=== PATIENT | female | born 1935 | race Caucasian/White ===

== ENCOUNTER 2020-09-08 18:49 | Inpatient (IN) ==
[2020-09-08] MEDS ORDERED: Ondansetron 4 MG/2 ML VIAL IVP ONE (20:00)
[2020-09-08] MEDS ORDERED: Morphine Sulfate 2 MG/ML SYRINGE IVP ONE ×2 (20:00→22:25)
[2020-09-08 20:16] LABS: Basophils % 0.3 %; Eosinophils # 0.1 K/mcL (0.0-0.6); Eosinophils % 1.1 %; Hematocrit 37.8 % (35.3-44.9); Hemoglobin 12.6 g/dL (11.5-15.4); Immature Granulocytes % 0.3 % (0-4); Lymphocytes # 1.3 K/mcL (0.6-4.6); Lymphocytes % 13.5 %; Mean Corpuscular HGB Conc 33.3 g/dL (31.6-35.5); Mean Corpuscular Hemoglobin 28.8 pg (28.0-33.3); Mean Corpuscular Volume 86.3 fL (83.0-100.0); Monocytes # 0.8 K/mcL (0.0-1.3); Monocytes % 8.6 %; Neutrophils # 7.4 K/mcL (1.6-8.9); Platelet Count 268 K/mcL (140-400); Red Blood Count 4.38 M/mcL (3.82-4.97); Red Cell Distribution Width 12.4 % (11.5-14.5); Segmented Neutrophils % 76.2 %; White Blood Count 9.7 K/mcL (4.3-11.1)
[2020-09-08 20:25] LABS: Alanine Aminotransferase 7 Units/L (7-52); Albumin 3.9 g/dL (3.5-5.7); Albumin/Globulin Ratio 1.3 (1.1-2.2); Alkaline Phosphatase 88 Units/L (34-104); Aspartate Amino Transferase 15 Units/L (13-39); BUN/Creatinine Ratio 22 (6-26); Bilirubin,Total 0.7 mg/dL (0.3-1.0); Blood Urea Nitrogen 20 mg/dL (8-23); C-Reactive Protein 33 mg/L (Less than 10); Calcium 9.3 mg/dL (8.6-10.3); Carbon Dioxide 31 mEq/L (23-29); Chloride 93 mEq/L (98-107); Globulin 2.9 g/dL (2.4-3.5); Glucose 153 mg/dL (70-105); Osmolality,Calculated 280 (280-300); Potassium 3.6 mEq/L (3.5-5.1); Sodium 132 mEq/L (136-145); Total Protein 6.8 g/dL (6.4-8.9); eGFR For African Americans > 60 (> 60); eGFR For Non-African Americans 59 (> 60)
[2020-09-08] MEDS ORDERED: Piperacillin/Tazobactam 3.375 GM in Water for inj. (sterile) 20 ML IVP ONE (21:56)
[2020-09-08] MEDS ORDERED: Ondansetron 4 MG/2 ML VIAL IVP PRN (22:39)
[2020-09-08] MEDS ORDERED: Naloxone 0.4 MG/ML INJ IVP PRN (22:39)
[2020-09-08] MEDS ORDERED: Acetaminophen 325 MG TABLET PO PRN (22:39)
[2020-09-09 02:15] LABS: Basophils % 0.4 %; Eosinophils # 0.2 K/mcL (0.0-0.6); Eosinophils % 1.5 %; Hematocrit 40.7 % (35.3-44.9); Hemoglobin 13.4 g/dL (11.5-15.4); Immature Granulocytes % 0.3 % (0-4); Lymphocytes # 1.7 K/mcL (0.6-4.6); Lymphocytes % 15.8 %; Mean Corpuscular HGB Conc 32.9 g/dL (31.6-35.5); Mean Corpuscular Hemoglobin 28.6 pg (28.0-33.3); Mean Platelet Volume 10.2 fL (9.4-12.4); Monocytes % 9.1 %; Neutrophils # 7.9 K/mcL (1.6-8.9); Platelet Count 284 K/mcL (140-400); Red Blood Count 4.68 M/mcL (3.82-4.97); Red Cell Distribution Width 12.4 % (11.5-14.5); Segmented Neutrophils % 72.9 %; White Blood Count 10.8 K/mcL (4.3-11.1)
[2020-09-09 02:28] LABS: BUN/Creatinine Ratio 19 (6-26); Blood Urea Nitrogen 18 mg/dL (8-23); Carbon Dioxide 29 mEq/L (23-29); Chloride 96 mEq/L (98-107); Glucose 227 mg/dL (70-105); Osmolality,Calculated 287 (280-300); Potassium 3.6 mEq/L (3.5-5.1); Sodium 134 mEq/L (136-145); eGFR For African Americans > 60 (> 60); eGFR For Non-African Americans 56 (> 60)
[2020-09-09] MEDS: *HR* HYDROcodone/Acet 5/325 mg TABLET PO PRN (04:04)
[2020-09-09] MEDS: Piperacillin/Tazobactam 3.375 GM in 0.9 % Sodium Chloride Mini Bag 100 ML IVPB SCH ×3 (04:04→18:40)
[2020-09-09] MEDS ORDERED: *HR* OxyCODONE Immed Rel 5 MG TABLET PO ONE (05:31)
[2020-09-09] MEDS ORDERED: *HR* Metformin 500 MG TABLET PO SCH (08:00)
[2020-09-09] MEDS ORDERED: *HR* SitaGLIPtin 100 MG TABLET PO SCH (09:00)
[2020-09-09] MEDS ORDERED: *HR* Dextrose 50 % in Water (Vial) 50 ML VIAL IVP PRN (11:57)
[2020-09-09] MEDS ORDERED: Dextrose Gel 15 GM/37.5 ML TUBE PO PRN ×2 (11:57)
[2020-09-09] MEDS ORDERED: D5% in Water 1,000 ML IVC PRN (11:57)
[2020-09-09] MEDS: Fluticasone Propionate Nasal 50 MCG/SPRAY BOTTLE NS SCH (18:32)
[2020-09-09] MEDS: Insulin LISPRO 300 UNITS/3 ML VIAL SUBQ SCH (18:40)
[2020-09-09] MEDS: Insulin DETEMIR 100 UNIT/ML X5UNITS SUBQ SCH (20:10)
[2020-09-10] MEDS: Piperacillin/Tazobactam 3.375 GM in 0.9 % Sodium Chloride Mini Bag 100 ML IVPB SCH ×2 (02:47→11:28)
[2020-09-10 04:24] LABS: Calcium 8.7 mg/dL (8.6-10.3); Potassium 3.6 mEq/L (3.5-5.1)
[2020-09-10] MEDS: *HR* HYDROcodone/Acet 5/325 mg TABLET PO PRN ×2 (04:51→21:28)
[2020-09-10 05:44] LABS: Basophils # 0.1 K/mcL (0.0-0.2); Basophils % 0.5 %; Eosinophils # 0.2 K/mcL (0.0-0.6); Eosinophils % 1.7 %; Hematocrit 33.1 % (35.3-44.9); Immature Granulocytes % 0.3 % (0-4); Lymphocytes # 2.2 K/mcL (0.6-4.6); Lymphocytes % 17.4 %; Mean Corpuscular HGB Conc 33.2 g/dL (31.6-35.5); Mean Corpuscular Hemoglobin 28.6 pg (28.0-33.3); Mean Platelet Volume 10.2 fL (9.4-12.4); Monocytes # 1.1 K/mcL (0.0-1.3); Monocytes % 8.4 %; Neutrophils # 9.2 K/mcL (1.6-8.9); Platelet Count 250 K/mcL (140-400); Red Blood Count 3.85 M/mcL (3.82-4.97); Red Cell Distribution Width 12.4 % (11.5-14.5); Segmented Neutrophils % 71.7 %; White Blood Count 12.8 K/mcL (4.3-11.1)
[2020-09-10] MEDS ORDERED: 0.9 % Sodium Chloride 1,000 ML IVC SCH (08:15)
[2020-09-10] MEDS: Insulin LISPRO 300 UNITS/3 ML VIAL SUBQ SCH ×3 (08:45→17:19)
[2020-09-10] MEDS: Fluticasone Propionate Nasal 50 MCG/SPRAY BOTTLE NS SCH (14:16)
[2020-09-10] MEDS: Insulin DETEMIR 100 UNIT/ML X5UNITS SUBQ SCH (19:50)
[2020-09-11] MEDS: *HR* HYDROcodone/Acet 5/325 mg TABLET PO PRN ×2 (03:29→13:00)
[2020-09-11 05:22] LABS: Basophils % 0.3 %; Eosinophils # 0.2 K/mcL (0.0-0.6); Eosinophils % 2.1 %; Hematocrit 31.5 % (35.3-44.9); Hemoglobin 10.7 g/dL (11.5-15.4); Immature Granulocytes % 0.2 % (0-4); Lymphocytes # 2.1 K/mcL (0.6-4.6); Lymphocytes % 21.6 %; Mean Corpuscular Hemoglobin 29.4 pg (28.0-33.3); Mean Corpuscular Volume 86.5 fL (83.0-100.0); Mean Platelet Volume 10.2 fL (9.4-12.4); Monocytes # 0.9 K/mcL (0.0-1.3); Neutrophils # 6.5 K/mcL (1.6-8.9); Platelet Count 242 K/mcL (140-400); Red Blood Count 3.64 M/mcL (3.82-4.97); Red Cell Distribution Width 12.4 % (11.5-14.5); Segmented Neutrophils % 66.8 %; White Blood Count 9.8 K/mcL (4.3-11.1)
[2020-09-11 05:40] LABS: BUN/Creatinine Ratio 24 (6-26); Blood Urea Nitrogen 22 mg/dL (8-23); Calcium 8.7 mg/dL (8.6-10.3); Carbon Dioxide 29 mEq/L (23-29); Chloride 96 mEq/L (98-107); Glucose 134 mg/dL (70-105); Osmolality,Calculated 281 (280-300); Potassium 3.3 mEq/L (3.5-5.1); Sodium 133 mEq/L (136-145); eGFR For African Americans > 60 (> 60); eGFR For Non-African Americans 58 (> 60)
[2020-09-11] MEDS: Insulin LISPRO 300 UNITS/3 ML VIAL SUBQ SCH ×3 (10:30→18:27)
[2020-09-11] MEDS: Fluticasone Propionate Nasal 50 MCG/SPRAY BOTTLE NS SCH (10:35)
[2020-09-11] MEDS ORDERED: polyethylene glycoL 3350 17 GM POWD.PACK PO PRN (18:14)
[2020-09-11] MEDS: Insulin DETEMIR 100 UNIT/ML X5UNITS SUBQ SCH (22:51)
[2020-09-12] MEDS: *HR* HYDROcodone/Acet 5/325 mg TABLET PO PRN ×3 (01:36→17:22)
[2020-09-12] MEDS ORDERED: GI Cocktail 40 ML EACH PO ONE (01:42)
[2020-09-12 04:14] LABS: BUN/Creatinine Ratio 31 (6-26); Blood Urea Nitrogen 23 mg/dL (8-23); Calcium 9.1 mg/dL (8.6-10.3); Carbon Dioxide 27 mEq/L (23-29); Chloride 94 mEq/L (98-107); Glucose 162 mg/dL (70-105); Osmolality,Calculated 275 (280-300); Potassium 3.5 mEq/L (3.5-5.1); Sodium 129 mEq/L (136-145); eGFR For African Americans > 60 (> 60); eGFR For Non-African Americans > 60 (> 60)
[2020-09-12] MEDS: Benzonatate 100 MG CAPSULE PO PRN ×2 (05:44→17:30)
[2020-09-12] MEDS: Insulin LISPRO 300 UNITS/3 ML VIAL SUBQ SCH ×3 (08:46→17:29)
[2020-09-12] MEDS: Fluticasone Propionate Nasal 50 MCG/SPRAY BOTTLE NS SCH (08:46)
[2020-09-12 14:36] VITALS: BP 121/73
[2020-09-12 16:51] LABS: Adenovirus Not Detected (Not Detect); Bordetella Pertussis Not Detected (Not Detect); Chlamydophila pneumoniae Not Detected (Not Detect); Coronavirus 229E Not Detected (Not Detect); Coronavirus HKU1 Not Detected (Not Detect); Coronavirus NL63 Not Detected (Not Detect); Coronavirus OC43 Not Detected (Not Detect); Human Metapneumovirus Not Detected (Not Detect); Human Rhinovirus/Enterovirus Not Detected (Not Detect); Influenza A Subtype 2009 H1 Not Detected (Not Detect); Influenza B Not Detected (Not Detect); Mycoplasma pneumoniae Not Detected (Not Detect); Parainfluenza Virus 1 Not Detected (Not Detect); Parainfluenza Virus 2 Not Detected (Not Detect); Parainfluenza Virus 3 Not Detected (Not Detect); Parainfluenza Virus 4 Not Detected (Not Detect); Respiratory Syncytial Virus Not Detected (Not Detect); SARS-CoV-2 Not Detected (Not Detect)
== END 2020-09-12 19:25 | DRG 605 ==
LOC: 3NENU 18:49 → EMEROOARM 18:49 → 3NENU 23:23 → SUATTDRO 09-10 17:23
PROVIDERS: ADMIT Internal Medicine; ATTEND Student in an Organized Health Care Education/Training Program

== ENCOUNTER 2021-04-05 05:47 | Inpatient (IN) ==
[2021-04-05] MEDS ORDERED: Ondansetron 4 MG/2 ML VIAL IVP ONE ×2 (06:23→07:17)
[2021-04-05] MEDS ORDERED: 0.9 % Sodium Chloride 1,000 ML IVC ONE (07:17)
[2021-04-05 08:14] LABS: Basophils % 0.2 %; Hematocrit 36.6 % (35.3-44.9); Hemoglobin 13.2 g/dL (11.5-15.4); Immature Granulocytes % 0.4 % (0-4); Lymphocytes # 0.8 K/mcL (0.6-4.6); Lymphocytes % 14.9 %; Mean Corpuscular HGB Conc 36.1 g/dL (31.6-35.5); Mean Corpuscular Hemoglobin 28.6 pg (28.0-33.3); Mean Corpuscular Volume 79.4 fL (83.0-100.0); Mean Platelet Volume 10.2 fL (9.4-12.4); Monocytes # 0.5 K/mcL (0.0-1.3); Monocytes % 9.7 %; Neutrophils # 3.9 K/mcL (1.6-8.9); Platelet Count 234 K/mcL (140-400); Red Blood Count 4.61 M/mcL (3.82-4.97); Red Cell Distribution Width 12.2 % (11.5-14.5); Segmented Neutrophils % 74.8 %; White Blood Count 5.2 K/mcL (4.3-11.1)
[2021-04-05] MEDS ORDERED: levoFLOXacin 750 MG/150 ML 750 MG/150 ML BAG IVPB ONE (08:25)
[2021-04-05 08:51] LABS: Bacteria,Urine Few per hpf (None-Few); Bilirubin,Urine Negative (Negative); Blood,Urine Trace (Negative); Clarity,Urine Clear (Clear); Color,Urine Light-Yellow (Yellow); Glucose,Urine (UA) >=1000 mg/dL (Normal); Ketones,Urine Negative (Negative); Leukocyte Esterase,Urine Negative (Negative); Nitrite,Urine Negative (Negative); PH,Urine 7.5 pH Units (5.0-8.0); Protein,Urine 30 mg/dL (Neg-Trace); RBC,Urine 0-3 per hpf (0-3); Specific Gravity,Urine 1.011 (1.010-1.025); Urobilinogen,Urine Normal (Normal)
[2021-04-05 09:00] LABS: Alanine Aminotransferase 10 Units/L (7-52); Albumin 3.7 g/dL (3.5-5.7); Albumin/Globulin Ratio 1.5 (1.1-2.2); Alkaline Phosphatase 99 Units/L (34-104); Aspartate Amino Transferase 24 Units/L (13-39); BUN/Creatinine Ratio 15 (6-26); Bilirubin,Direct 0.3 mg/dL (0.0-0.2); Bilirubin,Indirect 0.7 mg/dL (0.0-1.0); Blood Urea Nitrogen 9 mg/dL (8-23); Calcium 8.1 mg/dL (8.6-10.3); Carbon Dioxide 32 mEq/L (23-29); Chloride 77 mEq/L (98-107); Globulin 2.4 g/dL (2.4-3.5); Glucose 184 mg/dL (70-105); Osmolality,Calculated 247 (280-300); Potassium 2.5 mEq/L (3.5-5.1); Sodium 117 mEq/L (136-145); Total Protein 6.1 g/dL (6.4-8.9); Troponin I < 0.03 ng/mL (< 0.04); eGFR For African Americans > 60 (> 60); eGFR For Non-African Americans > 60 (> 60)
[2021-04-05] MEDS ORDERED: Potassium Chloride 40 MEQ, Lidocaine 1% 2 ML in 0.9 % Sodium Chloride 500 ML IVPB ONE (09:01)
[2021-04-05] MEDS ORDERED: *HR* Promethazine 25 MG/ML VIAL IM PRN (10:04)
[2021-04-05 10:37] LABS: ABG Base Excess 7 mEq/L (-2 to 3); ABG HCO3 31 mEq/L (21-27); ABG Oxygen Saturation 94 % (95-98); ABG PCO2 41 mmHg (35-45); ABG PH 7.49 pH Units (7.32-7.45); ABG PO2 64 mmHg (85-104); ABG TCO2 33 mEq/L (20-26)
[2021-04-05 10:56] LABS: BUN/Creatinine Ratio 15 (6-26); Blood Urea Nitrogen 8 mg/dL (8-23); Calcium 7.6 mg/dL (8.6-10.3); Carbon Dioxide 30 mEq/L (23-29); Chloride 78 mEq/L (98-107); Creatine Kinase 110 Units/L (30-223); Glucose 195 mg/dL (70-105); Lactate Dehydrogenase 165 Units/L (140-271); Osmolality,Calculated 246 (280-300); Potassium 2.4 mEq/L (3.5-5.1); Sodium 116 mEq/L (136-145); eGFR For African Americans > 60 (> 60); eGFR For Non-African Americans > 60 (> 60)
[2021-04-05 11:18] LABS: Ferritin 185 ng/mL (10-120); Thyroid Stimulating Hormone 0.913 mcIU/mL (0.340-5.600)
[2021-04-05 11:36] LABS: Adenovirus Not Detected (Not Detect); Coronavirus 229E Not Detected (Not Detect); Coronavirus HKU1 Not Detected (Not Detect); Coronavirus NL63 Not Detected (Not Detect); Coronavirus OC43 Not Detected (Not Detect); Human Metapneumovirus Not Detected (Not Detect); Human Rhinovirus/Enterovirus Not Detected (Not Detect)
[2021-04-05 11:37] LABS: Bordetella Pertussis Not Detected (Not Detect); Chlamydophila pneumoniae Not Detected (Not Detect); Influenza A Subtype 2009 H1 Not Detected (Not Detect); Influenza B Not Detected (Not Detect); Mycoplasma pneumoniae Not Detected (Not Detect); Parainfluenza Virus 1 Not Detected (Not Detect); Parainfluenza Virus 2 Not Detected (Not Detect); Parainfluenza Virus 3 Not Detected (Not Detect); Parainfluenza Virus 4 Not Detected (Not Detect); Respiratory Syncytial Virus Not Detected (Not Detect); SARS-CoV-2 DETECTED (Not Detect)
[2021-04-05] MEDS ORDERED: 0.9 % Sodium Chloride 1,000 ML IVC SCH (12:15)
[2021-04-05 15:24] LABS: VBG Ionized Calcium 0.88 mmol/L (1.15-1.35)
[2021-04-05 15:49] LABS: Albumin 3.1 g/dL (3.5-5.7); BUN/Creatinine Ratio 14 (6-26); Blood Urea Nitrogen 8 mg/dL (8-23); Calcium 6.7 mg/dL (8.6-10.3); Carbon Dioxide 26 mEq/L (23-29); Chloride 85 mEq/L (98-107); Glucose 193 mg/dL (70-105); Osmolality,Calculated 250 (280-300); Phosphorous 1.6 mg/dL (2.7-4.5); Potassium 2.6 mEq/L (3.5-5.1); Sodium 118 mEq/L (136-145); eGFR For African Americans > 60 (> 60); eGFR For Non-African Americans > 60 (> 60)
[2021-04-05] MEDS: *HR* OxyCODONE/APAP 5/325 TABLET PO PRN (18:45)
[2021-04-05] MEDS ORDERED: Saline Nasal Spray 44 ML BOTTLE NS PRN (22:30)
[2021-04-05] MEDS ORDERED: Chloraseptic Spray 177 ML BOTTLE MM PRN (22:30)
[2021-04-05] MEDS ORDERED: Saliva Stimulant 44.3ml BOTTLE PO PRN (22:30)
[2021-04-05] MEDS ORDERED: D5% in Water 1,000 ML IVC PRN (22:42)
[2021-04-05] MEDS ORDERED: Dextrose Gel 15 GM/37.5 ML TUBE PO PRN ×2 (22:42)
[2021-04-05] MEDS ORDERED: *HR* Dextrose 50 % in Water (Syg) 50 ML SYRINGE IVP PRN (22:42)
[2021-04-05] MEDS: Ipratropium 1 PUFF INHALER IH SCH (22:54)
[2021-04-05] MEDS ORDERED: Remdesivir 200 MG in 0.9 % Sodium Chloride 100 ML IVPB ONE (23:00)
[2021-04-05] MEDS ORDERED: Isovue-370 500 ML BOTTLE IVP ONE (23:06)
[2021-04-06] MEDS: *HR* OxyCODONE/APAP 5/325 TABLET PO PRN ×2 (01:16→21:59)
[2021-04-06] MEDS: 0.9 % Sodium Chloride w KCl 20 MEQ/1,000 ML MLS IVC SCH ×2 (01:16→13:28)
[2021-04-06] MEDS: Ipratropium 1 PUFF INHALER IH SCH ×4 (03:25→22:44)
[2021-04-06] MEDS: *HR* Enoxaparin 40 MG/0.4 ML SYRINGE SQ SCH (05:56)
[2021-04-06] MEDS: Insulin LISPRO 300 UNITS/3 ML VIAL SUBQ SCH ×3 (08:05→17:02)
[2021-04-06] MEDS: Artificial Tears SOLN 15 ML BOTTLE BOTH EYES SCH ×2 (08:05→22:33)
[2021-04-06] MEDS: Chlorhexidine Rinse 15 ML MOUTHWASH MM SCH ×2 (08:07→21:59)
[2021-04-06] MEDS: Aspirin 325 MG TABLET PO SCH (08:07)
[2021-04-06] MEDS: Cholecalciferol (D-3) 1,000 UNIT (25MCG) TABLET PO SCH (08:07)
[2021-04-06] MEDS: Pantoprazole 40 MG VIAL IVP SCH (08:08)
[2021-04-06] MEDS: amLODIPine 5 MG TABLET PO SCH (08:08)
[2021-04-06] MEDS: Multivit/Ca/Min/Fe/FA 1 TAB TABLET PO SCH (08:08)
[2021-04-06] MEDS ORDERED: Magnesium Sulfate 1 GM/102 ML PIGGYBACK IVPB ONE (09:24)
[2021-04-06 09:46] LABS: Basophils % 0.2 %; Eosinophils % 0.4 %; Hematocrit 33.1 % (35.3-44.9); Hemoglobin 11.8 g/dL (11.5-15.4); Immature Granulocytes % 0.4 % (0-4); Lymphocytes # 0.8 K/mcL (0.6-4.6); Lymphocytes % 14.8 %; Mean Corpuscular HGB Conc 35.6 g/dL (31.6-35.5); Mean Corpuscular Hemoglobin 28.5 pg (28.0-33.3); Mean Platelet Volume 10.2 fL (9.4-12.4); Monocytes # 0.4 K/mcL (0.0-1.3); Monocytes % 6.7 %; Neutrophils # 4.3 K/mcL (1.6-8.9); Platelet Count 215 K/mcL (140-400); Red Blood Count 4.14 M/mcL (3.82-4.97); Red Cell Distribution Width 12.4 % (11.5-14.5); Segmented Neutrophils % 77.5 %; White Blood Count 5.5 K/mcL (4.3-11.1)
[2021-04-06 10:03] LABS: INR 1.1; Prothrombin Time 11.7 Seconds (9.4-12.1)
[2021-04-06 10:36] LABS: Alanine Aminotransferase 9 Units/L (7-52); Alkaline Phosphatase 74 Units/L (34-104); Aspartate Amino Transferase 29 Units/L (13-39); BUN/Creatinine Ratio 11 (6-26); Bilirubin,Direct 0.1 mg/dL (0.0-0.2); Bilirubin,Indirect 0.4 mg/dL (0.0-1.0); Bilirubin,Total 0.5 mg/dL (0.3-1.0); Blood Urea Nitrogen 8 mg/dL (8-23); Calcium 7.5 mg/dL (8.6-10.3); Carbon Dioxide 25 mEq/L (23-29); Chloride 82 mEq/L (98-107); Glucose 198 mg/dL (70-105); Magnesium 1.7 mg/dL (1.6-2.6); Osmolality,Calculated 244 (280-300); Potassium 3.4 mEq/L (3.5-5.1); Sodium 115 mEq/L (136-145); Total Protein 5.2 g/dL (6.4-8.9); eGFR For African Americans > 60 (> 60); eGFR For Non-African Americans > 60 (> 60)
[2021-04-06 10:37] LABS: Albumin/Globulin Ratio 1.4 (1.1-2.2); C-Reactive Protein < 5 mg/L (Less than 10); Ferritin 169 ng/mL (10-120); Globulin 2.2 g/dL (2.4-3.5); Lipase 52 Units/L (11-82)
[2021-04-06] MEDS ORDERED: Tolvaptan 15 MG TABLET PO ONE (10:39)
[2021-04-06] MEDS: Calcium Gluconate 1gm/50mL 1 GM/50 ML BAG IVPB SCH ×2 (11:18→12:33)
[2021-04-06] MEDS: Ampicillin/Sulbactam 1,500 MG in 0.9 % Sodium Chloride Mini Bag 100 ML IVPB SCH ×3 (13:47→23:31)
[2021-04-06 15:38] LABS: VBG Ionized Calcium 1.05 mmol/L (1.15-1.35)
[2021-04-06 15:40] LABS: Albumin 3.3 g/dL (3.5-5.7); BUN/Creatinine Ratio 17 (6-26); Blood Urea Nitrogen 13 mg/dL (8-23); Calcium 8.3 mg/dL (8.6-10.3); Carbon Dioxide 24 mEq/L (23-29); Chloride 87 mEq/L (98-107); Glucose 298 mg/dL (70-105); Magnesium 1.7 mg/dL (1.6-2.6); Osmolality,Calculated 263 (280-300); Phosphorous 2.4 mg/dL (2.7-4.5); Potassium 3.6 mEq/L (3.5-5.1); Sodium 121 mEq/L (136-145); eGFR For African Americans > 60 (> 60); eGFR For Non-African Americans > 60 (> 60)
[2021-04-06] MEDS ORDERED: 0.9 % Sodium Chloride w KCl 20 MEQ/1,000 ML MLS IVC SCH (15:46)
[2021-04-06] MEDS: Acetaminophen 325 MG TABLET PO PRN (18:08)
[2021-04-06] MEDS ORDERED: PRAMIPEXOLE DI HCL PO SCH (21:00)
[2021-04-06] MEDS: Insulin DETEMIR 100 UNIT/ML X5UNITS SUBQ SCH (21:59)
[2021-04-06] MEDS: Remdesivir 100 MG in 0.9 % Sodium Chloride 100 ML IVPB SCH (22:00)
[2021-04-07] MEDS: Acetaminophen 325 MG TABLET PO PRN (01:29)
[2021-04-07 01:55] LABS: Hematocrit 36.3 % (35.3-44.9); Hemoglobin 12.7 g/dL (11.5-15.4); Mean Corpuscular Hemoglobin 28.7 pg (28.0-33.3); Mean Corpuscular Volume 81.9 fL (83.0-100.0); Mean Platelet Volume 9.9 fL (9.4-12.4); Platelet Count 259 K/mcL (140-400); Red Blood Count 4.43 M/mcL (3.82-4.97); Red Cell Distribution Width 12.4 % (11.5-14.5); White Blood Count 5.7 K/mcL (4.3-11.1)
[2021-04-07 02:14] LABS: Magnesium 1.7 mg/dL (1.6-2.6); Phosphorous 2.8 mg/dL (2.7-4.5)
[2021-04-07 02:15] LABS: Albumin 3.4 g/dL (3.5-5.7); Albumin/Globulin Ratio 1.4 (1.1-2.2); Bilirubin,Direct 0.2 mg/dL (0.0-0.2); Bilirubin,Indirect 0.4 mg/dL (0.0-1.0); Bilirubin,Total 0.6 mg/dL (0.3-1.0); Globulin 2.5 g/dL (2.4-3.5); Total Protein 5.9 g/dL (6.4-8.9)
[2021-04-07 02:19] LABS: BUN/Creatinine Ratio 16 (6-26); Blood Urea Nitrogen 12 mg/dL (8-23); Calcium 8.5 mg/dL (8.6-10.3); Carbon Dioxide 29 mEq/L (23-29); Chloride 94 mEq/L (98-107); Glucose 121 mg/dL (70-105); Osmolality,Calculated 273 (280-300); Potassium 3.8 mEq/L (3.5-5.1); Sodium 131 mEq/L (136-145); eGFR For African Americans > 60 (> 60); eGFR For Non-African Americans > 60 (> 60)
[2021-04-07] MEDS: Ipratropium 1 PUFF INHALER IH SCH ×4 (05:20→22:19)
[2021-04-07] MEDS: Ampicillin/Sulbactam 1,500 MG in 0.9 % Sodium Chloride Mini Bag 100 ML IVPB SCH (05:43)
[2021-04-07] MEDS: *HR* Enoxaparin 40 MG/0.4 ML SYRINGE SQ SCH (06:40)
[2021-04-07] MEDS: Chlorhexidine Rinse 15 ML MOUTHWASH MM SCH ×2 (07:22→20:48)
[2021-04-07] MEDS: Cholecalciferol (D-3) 1,000 UNIT (25MCG) TABLET PO SCH (07:23)
[2021-04-07] MEDS: Cyanocobalamin (B-12) 1,000 MCG TABLET PO SCH (07:23)
[2021-04-07] MEDS: amLODIPine 5 MG TABLET PO SCH (07:23)
[2021-04-07] MEDS: Aspirin 325 MG TABLET PO SCH (07:23)
[2021-04-07] MEDS: Pantoprazole 40 MG VIAL IVP SCH (07:23)
[2021-04-07] MEDS: Multivit/Ca/Min/Fe/FA 1 TAB TABLET PO SCH (07:23)
[2021-04-07] MEDS: Artificial Tears SOLN 15 ML BOTTLE BOTH EYES SCH ×2 (07:43→20:52)
[2021-04-07] MEDS: Insulin LISPRO 300 UNITS/3 ML VIAL SUBQ SCH ×3 (07:43→17:59)
[2021-04-07] MEDS ORDERED: Aspirin Enteric Coated 325 MG Tablet PO SCH (09:00)
[2021-04-07] MEDS ORDERED: Potassium Chloride 20 MEQ in D5% in Water 1,000 ML IVC SCH ×2 (10:00→11:40)
[2021-04-07 10:32] LABS: BUN/Creatinine Ratio 13 (6-26); Blood Urea Nitrogen 10 mg/dL (8-23); Calcium 8.7 mg/dL (8.6-10.3); Carbon Dioxide 34 mEq/L (23-29); Chloride 94 mEq/L (98-107); Glucose 120 mg/dL (70-105); Osmolality,Calculated 276 (280-300); Potassium 4.1 mEq/L (3.5-5.1); Sodium 133 mEq/L (136-145); eGFR For African Americans > 60 (> 60); eGFR For Non-African Americans > 60 (> 60)
[2021-04-07] MEDS ORDERED: amLODIPine 5 MG TABLET PO SCH (12:15)
[2021-04-07] MEDS: *HR* OxyCODONE/APAP 5/325 TABLET PO PRN ×2 (14:09→20:47)
[2021-04-07 18:37] LABS: BUN/Creatinine Ratio 17 (6-26); Blood Urea Nitrogen 14 mg/dL (8-23); Calcium 8.6 mg/dL (8.6-10.3); Carbon Dioxide 21 mEq/L (23-29); Chloride 95 mEq/L (98-107); Glucose 319 mg/dL (70-105); Osmolality,Calculated 281 (280-300); Potassium 5.7 mEq/L (3.5-5.1); Sodium 129 mEq/L (136-145); eGFR For African Americans > 60 (> 60); eGFR For Non-African Americans > 60 (> 60)
[2021-04-07] MEDS: Insulin DETEMIR 100 UNIT/ML X5UNITS SUBQ SCH (20:48)
[2021-04-07] MEDS: Remdesivir 100 MG in 0.9 % Sodium Chloride 100 ML IVPB SCH (23:19)
[2021-04-08] MEDS: Ipratropium 1 PUFF INHALER IH SCH ×4 (03:43→21:21)
[2021-04-08] MEDS: *HR* Enoxaparin 40 MG/0.4 ML SYRINGE SQ SCH (05:20)
[2021-04-08] MEDS: Acetaminophen 325 MG TABLET PO PRN (05:21)
[2021-04-08] MEDS: Chlorhexidine Rinse 15 ML MOUTHWASH MM SCH ×2 (09:49→21:47)
[2021-04-08] MEDS: Pantoprazole 40 MG VIAL IVP SCH (09:49)
[2021-04-08] MEDS: Artificial Tears SOLN 15 ML BOTTLE BOTH EYES SCH ×2 (09:49→21:48)
[2021-04-08] MEDS: Multivit/Ca/Min/Fe/FA 1 TAB TABLET PO SCH (09:51)
[2021-04-08] MEDS: Aspirin 325 MG TABLET PO SCH (09:51)
[2021-04-08] MEDS: Insulin LISPRO 300 UNITS/3 ML VIAL SUBQ SCH ×3 (09:51→17:28)
[2021-04-08] MEDS: amLODIPine 5 MG TABLET PO SCH (09:51)
[2021-04-08] MEDS: Cyanocobalamin (B-12) 1,000 MCG TABLET PO SCH (09:51)
[2021-04-08] MEDS: Cholecalciferol (D-3) 1,000 UNIT (25MCG) TABLET PO SCH (09:51)
[2021-04-08] MEDS ORDERED: Sodium Bicarbonate 150 MEQ in Water for inj. (sterile) 1,000 ML IVC SCH (14:15)
[2021-04-08 20:21] LABS: Hematocrit 38.1 % (35.3-44.9); Hemoglobin 12.9 g/dL (11.5-15.4); Mean Corpuscular HGB Conc 33.9 g/dL (31.6-35.5); Mean Corpuscular Hemoglobin 28.5 pg (28.0-33.3); Mean Corpuscular Volume 84.1 fL (83.0-100.0); Mean Platelet Volume 9.9 fL (9.4-12.4); Platelet Count 363 K/mcL (140-400); Red Blood Count 4.53 M/mcL (3.82-4.97); White Blood Count 7.6 K/mcL (4.3-11.1)
[2021-04-08 20:26] LABS: Magnesium 1.6 mg/dL (1.6-2.6); Phosphorous 2.8 mg/dL (2.7-4.5)
[2021-04-08 20:29] LABS: Albumin 3.8 g/dL (3.5-5.7); BUN/Creatinine Ratio 18 (6-26); Blood Urea Nitrogen 17 mg/dL (8-23); Calcium 8.8 mg/dL (8.6-10.3); Carbon Dioxide 31 mEq/L (23-29); Chloride 90 mEq/L (98-107); Glucose 329 mg/dL (70-105); Osmolality,Calculated 282 (280-300); Phosphorous 2.8 mg/dL (2.7-4.5); Potassium 3.9 mEq/L (3.5-5.1); Sodium 129 mEq/L (136-145); eGFR For African Americans > 60 (> 60); eGFR For Non-African Americans 56 (> 60)
[2021-04-08] MEDS: Insulin DETEMIR 100 UNIT/ML X5UNITS SUBQ SCH (21:48)
[2021-04-09] MEDS: Acetaminophen 325 MG TABLET PO PRN (00:03)
[2021-04-09] MEDS: *HR* OxyCODONE/APAP 5/325 TABLET PO PRN (01:31)
[2021-04-09 03:43] LABS: BUN/Creatinine Ratio 19 (6-26); Blood Urea Nitrogen 15 mg/dL (8-23); Calcium 8.4 mg/dL (8.6-10.3); Carbon Dioxide 32 mEq/L (23-29); Chloride 91 mEq/L (98-107); Glucose 188 mg/dL (70-105); Osmolality,Calculated 276 (280-300); Potassium 3.3 mEq/L (3.5-5.1); Sodium 130 mEq/L (136-145); eGFR For African Americans > 60 (> 60); eGFR For Non-African Americans > 60 (> 60)
[2021-04-09] MEDS: Ipratropium 1 PUFF INHALER IH SCH ×2 (04:43→10:26)
[2021-04-09] MEDS: *HR* Enoxaparin 40 MG/0.4 ML SYRINGE SQ SCH (05:52)
[2021-04-09 08:24] LABS: Albumin 3.6 g/dL (3.5-5.7); Phosphorous 2.6 mg/dL (2.7-4.5)
[2021-04-09] MEDS: Pantoprazole 40 MG VIAL IVP SCH (08:54)
[2021-04-09] MEDS: Chlorhexidine Rinse 15 ML MOUTHWASH MM SCH (08:55)
[2021-04-09] MEDS: Cholecalciferol (D-3) 1,000 UNIT (25MCG) TABLET PO SCH (08:55)
[2021-04-09] MEDS: Aspirin 325 MG TABLET PO SCH (08:55)
[2021-04-09] MEDS: Cyanocobalamin (B-12) 1,000 MCG TABLET PO SCH (08:55)
[2021-04-09] MEDS: amLODIPine 5 MG TABLET PO SCH (08:55)
[2021-04-09] MEDS: Multivit/Ca/Min/Fe/FA 1 TAB TABLET PO SCH (08:55)
[2021-04-09] MEDS: Artificial Tears SOLN 15 ML BOTTLE BOTH EYES SCH (08:56)
[2021-04-09] MEDS: Insulin LISPRO 300 UNITS/3 ML VIAL SUBQ SCH ×2 (08:56→12:03)
[2021-04-09] MEDS ORDERED: Potassium Phosphate 44 MEQ in 0.9 % Sodium Chloride 250 ML IVPB ONE (09:41)
[2021-04-09 11:42] VITALS: BP 138/66; PULSE 84; TEMP 98.3; O2SAT 100
[2021-04-09] MEDS: Calcium Gluconate 1gm/50mL 1 GM/50 ML BAG IVPB SCH ×2 (12:02→13:12)
[2021-04-12] MEDS ORDERED: Ergocalciferol (VIT D2) 50,000 UNIT (1.25MG) CAP PO SCH (12:30)
== END 2021-04-09 15:51 | disposition home or self-care (01) | DRG 177 ==
LOC: SUATTDRO → EMEROOARM 05:47 → 3ANU 05:47 → SUATTDRO 12:29
PROVIDERS: ADMIT Internal Medicine; ATTEND Internal Medicine

== ENCOUNTER 2021-11-25 16:20 | Inpatient (IN) ==
[2021-11-25] MEDS ORDERED: 0.9 % Sodium Chloride 500 ML IVC ONE (16:58)
[2021-11-25] MEDS ORDERED: *HR* Acetaminophen w/Cod 300-30 mg 1 TAB TABLET PO STA (17:00)
[2021-11-25 17:07] LABS: Basophils % 0.2 %; Eosinophils % 0.1 %; Hematocrit 40.6 % (35.3-44.9); Hemoglobin 13.5 g/dL (11.5-15.4); Immature Granulocytes % 0.4 % (0-4); Lymphocytes # 0.4 K/mcL (0.6-4.6); Mean Corpuscular HGB Conc 33.3 g/dL (31.6-35.5); Mean Corpuscular Hemoglobin 28.5 pg (28.0-33.3); Mean Corpuscular Volume 85.8 fL (83.0-100.0); Mean Platelet Volume 10.3 fL (9.4-12.4); Monocytes # 0.4 K/mcL (0.0-1.3); Neutrophils # 12.9 K/mcL (1.6-8.9); Platelet Count 210 K/mcL (140-400); Red Blood Count 4.73 M/mcL (3.82-4.97); Segmented Neutrophils % 93.3 %; White Blood Count 13.9 K/mcL (4.3-11.1)
[2021-11-25 17:15] LABS: INR 1.1; Prothrombin Time 12.4 Seconds (9.4-12.1)
[2021-11-25 17:29] LABS: Alanine Aminotransferase 6 Units/L (7-52); Albumin 4.1 g/dL (3.5-5.7); Albumin/Globulin Ratio 1.6 (1.1-2.2); Alkaline Phosphatase 92 Units/L (34-104); Aspartate Amino Transferase 14 Units/L (13-39); BUN/Creatinine Ratio 29 (6-26); Bilirubin,Total 0.9 mg/dL (0.3-1.0); Blood Urea Nitrogen 26 mg/dL (8-23); Calcium 9.1 mg/dL (8.6-10.3); Carbon Dioxide 28 mEq/L (23-29); Chloride 99 mEq/L (98-107); Globulin 2.6 g/dL (2.4-3.5); Glucose 160 mg/dL (70-105); Lipase 49 Units/L (11-82); Magnesium 1.6 mg/dL (1.6-2.6); Osmolality,Calculated 286 (280-300); Potassium 4.2 mEq/L (3.5-5.1); Sodium 134 mEq/L (136-145); Total Protein 6.7 g/dL (6.4-8.9); Troponin I < 0.03 ng/mL (< 0.04); eGFR For African Americans > 60 (> 60); eGFR For Non-African Americans 59 (> 60)
[2021-11-25 18:18] LABS: Influenza A PCR Negative (Negative); Influenza B PCR Negative (Negative); Resp. Syncytial Virus PCR Negative (Negative)
[2021-11-25 18:25] LABS: SARS-CoV-2 by PCR (In House) Negative (Negative)
[2021-11-25] MEDS ORDERED: Isovue-370 500 ML BOTTLE IVP ONE ×2 (18:40→18:41)
[2021-11-25 19:56] LABS: Amorphous Sediment,Urine Few per hpf (None-Few); Bacteria,Urine Few per hpf (None-Few); Bilirubin,Urine Negative (Negative); Blood,Urine Trace (Negative); Clarity,Urine Turbid (Clear); Color,Urine Light-Yellow (Yellow); Glucose,Urine (UA) Normal (Normal); Ketones,Urine Negative (Negative); Leukocyte Esterase,Urine Large (Negative); Nitrite,Urine Negative (Negative); Protein,Urine Negative (Neg-Trace); Specific Gravity,Urine > 1.030 (1.010-1.025); Squamous Epithelial Cell,Urine Moderate per hpf (None-Few); Urobilinogen,Urine Normal (Normal); WBC,Urine 50-100 per hpf (0-3)
[2021-11-25] MEDS ORDERED: Ipratropium/Albuterol Neb 3 ML IH ONE ×2 (21:05→21:21)
[2021-11-25 23:10] LABS: VBG HCO3 28 mEq/L (21-27); VBG PCO2 47 mmHg (41-51); VBG PH 7.38 pH Units (7.32-7.42); VBG PO2 57 mmHg (25-50)
[2021-11-25] MEDS ORDERED: methylPREDNISolone 125 MG/2 ML VIAL IVP ONE (23:14)
[2021-11-26 01:20] LABS: ABG Base Excess 1 mEq/L (-2 to 3); ABG HCO3 26 mEq/L (21-27); ABG Oxygen Saturation 88 % (95-98); ABG PCO2 40 mmHg (35-45); ABG PH 7.42 pH Units (7.32-7.45); ABG PO2 53 mmHg (85-104); ABG TCO2 27 mEq/L (20-26)
[2021-11-26] MEDS ORDERED: Naloxone 0.4 MG/ML INJ IVP PRN (01:53)
[2021-11-26] MEDS ORDERED: Ondansetron ODT 4 MG TAB.RAPDIS SL PRN (01:53)
[2021-11-26] MEDS ORDERED: Melatonin 3 MG TABLET PO PRN (01:53)
[2021-11-26] MEDS ORDERED: 0.9 % Sodium Chloride 1,000 ML IVC ONE (02:55)
[2021-11-26] MEDS ORDERED: Perflutren Lipid Microsphere 1.3 ML in 0.9 % Sodium Chloride 8.7 ML IVP PRN (03:49)
[2021-11-26] MEDS ORDERED: Albuterol 2.5 MG/3 ML NEBULIZER IH PRN (04:00)
[2021-11-26 04:16] LABS: Adenovirus Not Detected (Not Detect); Bordetella Pertussis Not Detected (Not Detect); Chlamydophila pneumoniae Not Detected (Not Detect); Coronavirus 229E Not Detected (Not Detect); Coronavirus HKU1 Not Detected (Not Detect); Coronavirus NL63 Not Detected (Not Detect); Coronavirus OC43 Not Detected (Not Detect); Human Metapneumovirus Not Detected (Not Detect); Human Rhinovirus/Enterovirus Not Detected (Not Detect); Influenza A Subtype 2009 H1 Not Detected (Not Detect); Influenza B Not Detected (Not Detect); Mycoplasma pneumoniae Not Detected (Not Detect); Parainfluenza Virus 1 Not Detected (Not Detect); Parainfluenza Virus 2 Not Detected (Not Detect); Parainfluenza Virus 3 Not Detected (Not Detect); Parainfluenza Virus 4 Not Detected (Not Detect); Respiratory Syncytial Virus Not Detected (Not Detect); SARS-CoV-2 Not Detected (Not Detect)
[2021-11-26 04:43] LABS: Basophils % 0.1 %; Hematocrit 42.6 % (35.3-44.9); Hemoglobin 13.8 g/dL (11.5-15.4); Immature Granulocytes % 0.5 % (0-4); Lymphocytes # 0.5 K/mcL (0.6-4.6); Mean Corpuscular HGB Conc 32.4 g/dL (31.6-35.5); Mean Corpuscular Hemoglobin 28.5 pg (28.0-33.3); Mean Platelet Volume 10.7 fL (9.4-12.4); Monocytes # 0.1 K/mcL (0.0-1.3); Monocytes % 0.6 %; Neutrophils # 14.8 K/mcL (1.6-8.9); Platelet Count 198 K/mcL (140-400); Red Blood Count 4.84 M/mcL (3.82-4.97); Red Cell Distribution Width 13.2 % (11.5-14.5); Segmented Neutrophils % 95.8 %; White Blood Count 15.4 K/mcL (4.3-11.1)
[2021-11-26] MEDS: Sennosides/Docusate Sodium TABLET PO SCH ×3 (04:54→21:57)
[2021-11-26] MEDS: *HR* Heparin 5,000 UNIT/ML VIAL SQ SCH ×2 (05:00→18:18)
[2021-11-26 05:06] LABS: Phosphorous 3.6 mg/dL (2.7-4.5)
[2021-11-26 05:23] LABS: Platelet Estimate Normal (Normal)
[2021-11-26] MEDS: Azithromycin 500 MG in 0.9 % Sodium Chloride 250 ML IVPB SCH (06:12)
[2021-11-26 06:17] LABS: Alanine Aminotransferase 4 Units/L (7-52); Albumin 3.8 g/dL (3.5-5.7); Albumin/Globulin Ratio 1.4 (1.1-2.2); Alkaline Phosphatase 85 Units/L (34-104); Aspartate Amino Transferase 16 Units/L (13-39); BUN/Creatinine Ratio 25 (6-26); Bilirubin,Total 0.8 mg/dL (0.3-1.0); Blood Urea Nitrogen 23 mg/dL (8-23); Calcium 8.7 mg/dL (8.6-10.3); Carbon Dioxide 18 mEq/L (23-29); Chloride 102 mEq/L (98-107); Globulin 2.7 g/dL (2.4-3.5); Glucose 257 mg/dL (70-105); Osmolality,Calculated 294 (280-300); Potassium 4.1 mEq/L (3.5-5.1); Sodium 136 mEq/L (136-145); Total Protein 6.5 g/dL (6.4-8.9); eGFR For African Americans > 60 (> 60); eGFR For Non-African Americans 58 (> 60)
[2021-11-26] MEDS: cefTRIAXone 1,000 MG in 0.9 % Sodium Chloride 10 ML IVP SCH (06:24)
[2021-11-26] MEDS: amLODIPine 5 MG TABLET PO SCH (08:28)
[2021-11-26] MEDS: Insulin LISPRO 300 UNITS/3 ML VIAL SUBQ SCH ×3 (08:28→17:58)
[2021-11-26] MEDS: Lactulose Oral Soln 20 GM/30 ML UDC PO SCH ×2 (10:32→21:58)
[2021-11-26] MEDS: Aspirin Enteric Coated 325 MG Tablet PO SCH (10:32)
[2021-11-27] MEDS: Insulin DETEMIR 100 UNIT/ML X5UNITS SUBQ SCH ×2 (00:14→13:48)
[2021-11-27] MEDS: Azithromycin 500 MG in 0.9 % Sodium Chloride 250 ML IVPB SCH (05:22)
[2021-11-27] MEDS: *HR* Heparin 5,000 UNIT/ML VIAL SQ SCH (05:23)
[2021-11-27] MEDS: Insulin LISPRO 300 UNITS/3 ML VIAL SUBQ SCH ×2 (07:36→12:24)
[2021-11-27] MEDS: Aspirin Enteric Coated 325 MG Tablet PO SCH (10:07)
[2021-11-27] MEDS: Lactulose Oral Soln 20 GM/30 ML UDC PO SCH (10:07)
[2021-11-27] MEDS: Sennosides/Docusate Sodium TABLET PO SCH (10:08)
[2021-11-27] MEDS: cefTRIAXone 1,000 MG in 0.9 % Sodium Chloride 10 ML IVP SCH (10:08)
[2021-11-27] MEDS: amLODIPine 5 MG TABLET PO SCH (10:09)
[2021-11-27 10:29] LABS: Basophils % 0.2 %; Eosinophils # 0.1 K/mcL (0.0-0.6); Eosinophils % 1.5 %; Hematocrit 37.9 % (35.3-44.9); Hemoglobin 12.4 g/dL (11.5-15.4); Immature Granulocytes % 0.1 % (0-4); Lymphocytes # 1.7 K/mcL (0.6-4.6); Lymphocytes % 21.6 %; Mean Corpuscular HGB Conc 32.7 g/dL (31.6-35.5); Mean Corpuscular Hemoglobin 28.6 pg (28.0-33.3); Mean Corpuscular Volume 87.5 fL (83.0-100.0); Mean Platelet Volume 10.8 fL (9.4-12.4); Monocytes # 0.6 K/mcL (0.0-1.3); Monocytes % 7.8 %; Neutrophils # 5.6 K/mcL (1.6-8.9); Platelet Count 189 K/mcL (140-400); Red Blood Count 4.33 M/mcL (3.82-4.97); Red Cell Distribution Width 12.9 % (11.5-14.5); Segmented Neutrophils % 68.8 %; White Blood Count 8.1 K/mcL (4.3-11.1)
[2021-11-27 10:46] LABS: BUN/Creatinine Ratio 24 (6-26); Blood Urea Nitrogen 19 mg/dL (8-23); Calcium 8.4 mg/dL (8.6-10.3); Carbon Dioxide 29 mEq/L (23-29); Chloride 104 mEq/L (98-107); Glucose 179 mg/dL (70-105); Osmolality,Calculated 289 (280-300); Phosphorous 2.4 mg/dL (2.7-4.5); Potassium 4.2 mEq/L (3.5-5.1); Sodium 136 mEq/L (136-145); eGFR For African Americans > 60 (> 60); eGFR For Non-African Americans > 60 (> 60)
[2021-11-27 15:28] VITALS: BP 148/72; PULSE 66; TEMP 98.4; O2SAT 94
== END 2021-11-27 16:56 | disposition home or self-care (01) | DRG 871 ==
LOC: EMEROOARM 16:20 → 3NENU 16:20 → SUATTDRO 11-26 02:39
PROVIDERS: ADMIT Internal Medicine; ATTEND Internal Medicine